=== PATIENT | female | born 1940 | race Caucasian/White ===

== ENCOUNTER 2020-11-03 10:05 | Inpatient (IN) | payer MEDICARE ==
[~2020-11-03] VITALS: Ht 165.1 cm; Wt 91.7 kg
[2020-11-03 10:54] LABS: BASOPHILS % 0.2 % (0.0-1.0); EOSINOPHILS % 0.1 % (0.0-6.0); HEMATOCRIT 40.4 % (34.2-44.1); MEAN CORPUSCULAR HEMOGLOBIN 30.2 pg (28-32); MEAN CORPUSCULAR HGB CONC 32.2 g/dL (31-35); MONOCYTES # (AUTO) 0.8 (0.2-0.8); MONOCYTES % 6.8 % (4.4-11.3); NEUTROPHILS # (AUTO) 9.5 (2.1-6.9); NEUTROPHILS % 83.3 % (38.7-80.0); PLATELET COUNT 278 x10e3/uL (140-360); RED CELL DISTRIBUTION WIDTH 13.5 % (11.7-14.4)
[2020-11-03 11:04] LABS: CLARITY,URINE SL CLOUDY (CLEAR); COLOR,URINE AMBER (YELLOW); KETONES,URINE TRACE (NEGATIVE); LEUKOCYTE ESTERASE ,URINE NEGATIVE (NEGATIVE); NITRITE,URINE NEGATIVE (NEGATIVE); PROTEIN,URINE DIPSTICK 1+ (NEGATIVE); URINE UROBILINOGEN 0.2 mg/dL (0.2 - 1)
[2020-11-03 11:09] LABS: PARTIAL THROMBOPLASTIN TIME 88.7 seconds (23.8-35.5)
[2020-11-03 11:10] LABS: INR 7.2; PROTHROMBIN TIME 62.3 seconds (11.9-14.5)
[2020-11-03 11:15] LABS: BACTERIA,URINE MODERATE /HPF; EPITHELIAL CELLS,URINE MODERATE /LPF
[2020-11-03 11:16] LABS: ALBUMIN 3.4 g/dL (3.5-5.0); ALBUMIN/GLOBULIN RATIO 1.1 (0.8-2.0); ANION GAP 17.3 mmol/L (8-16); CALCIUM 8.8 mg/dL (8.4-10.2); CREATININE, SERUM 1.22 mg/dL (0.57-1.11); MAGNESIUM 1.9 MG/DL (1.3-2.1); POTASSIUM 3.3 mmol/L (3.5-5.1)
[2020-11-03 11:23] LABS: CREATINE KINASE MB 1.6 ng/mL (0-5.0)
[2020-11-03] MEDS ORDERED: SODIUM CHLORIDE 0.9% 500ML 500 ML IV ONE (11:30)
[2020-11-03] MEDS ORDERED: MEROPENEM 1GM 100 ML IV ONE (11:30)
[2020-11-03 11:32] LABS: B-TYPE NATRIURETIC PEPTIDE2 376.8 pg/mL (0-100)
[2020-11-03] MEDS ORDERED: HYDRALAZINE HCL 20 MG/ML VIAL IV PRN (14:30)
[2020-11-03] MEDS ORDERED: POTASSIUM CHLORIDE 20 MEQ TAB CR PO NR (14:30)
[2020-11-03] MEDS ORDERED: ACETAMINOPHEN 325 MG TAB PO PRN (14:30)
[2020-11-03] MEDS ORDERED: DEXTROSE 50% SYRINGE 50 ML IV PRN (14:30)
[2020-11-03] MEDS ORDERED: DOCUSATE SODIUM 100 MG CAP PO PRN (14:30)
[2020-11-03] MEDS ORDERED: SIMETHICONE 80 MG CHEW PO PRN (14:30)
[2020-11-03] MEDS ORDERED: POTASSIUM CHLORIDE 20 MEQ TAB CR PO PRN (14:30)
[2020-11-03] MEDS ORDERED: LIDOCAINE 4% PATCH TP PRN (14:30)
[2020-11-03] MEDS ORDERED: ONDANSETRON HCL INJ 2MG/ML 2ML 2 MG/ML VIAL IV PRN (14:30)
[2020-11-03] MEDS ORDERED: DIPHENHYDRAMINE HCL 25 MG CAP PO PRN (14:30)
[2020-11-03] MEDS ORDERED: POLYETHYLENE GLYCOL 3350 17 GM PACK PO PRN (14:30)
[2020-11-03] MEDS: SODIUM CHLORIDE 0.9% 1000ML 1,000 ML IV SCH (15:18)
[2020-11-03] MEDS: CEFTRIAXONE 1 GM in SODIUM CHLORIDE 0.9% 50ML 50 ML IV SCH (15:18)
[2020-11-03 16:45] VITALS: BP 154/87
[2020-11-03] MEDS ORDERED: LISINOPRIL2.5 MG PO (16:58)
[2020-11-03] MEDS ORDERED: WARFARIN SODIUM5 MG PO (16:58)
[2020-11-03] MEDS ORDERED: FUROSEMIDE40 MG PO (16:58)
[2020-11-03] MEDS ORDERED: ATORVASTATIN CA20 MG PO (16:58)
[2020-11-03] MEDS ORDERED: METOPROLOL TAR100 MG PO (16:58)
[2020-11-03 18:35] LABS: CREATINE KINASE MB 1.8 ng/mL (0-5.0)
[2020-11-03 20:00] VITALS: BP 151/101
[2020-11-03 20:07] VITALS: BP 151/101
[2020-11-03] MEDS ORDERED: METOPROLOL TARTRATE 50 MG TAB PO STA (20:46)
[2020-11-03] MEDS ORDERED: CEFTRIAXONE 1 GM VIAL IV SCH (21:00)
[2020-11-03] MEDS ORDERED: SODIUM CHLORIDE 0.9% 250ML 250 ML ONE (23:16)
[2020-11-03 23:34] LABS: CREATINE KINASE MB 1.8 ng/mL (0-5.0)
[2020-11-04] VITALS (8 sets, daily range): BP systolic 115–154; BP diastolic 50–94
[2020-11-04] MEDS: MELATONIN 5 MG TABLET PO PRN ×2 (01:18→20:24)
[2020-11-04] MEDS: SODIUM CHLORIDE 0.9% 1000ML 1,000 ML IV SCH ×2 (03:50→17:17)
[2020-11-04 04:42] LABS: BASOPHILS % 0.3 % (0.0-1.0); EOSINOPHILS # (AUTO) 0.1 (0.0-0.4); EOSINOPHILS % 0.7 % (0.0-6.0); HEMATOCRIT 33.2 % (34.2-44.1); HEMOGLOBIN 10.7 g/dL (12.0-16.0); LYMPHOCYTES # (AUTO) 1.1 (1.0-3.2); LYMPHOCYTES % 14.3 % (18.0-39.1); MEAN CORPUSCULAR HEMOGLOBIN 30.4 pg (28-32); MEAN CORPUSCULAR HGB CONC 32.2 g/dL (31-35); MEAN CORPUSCULAR VOLUME 94.3 fL (81-99); MONOCYTES # (AUTO) 0.7 (0.2-0.8); MONOCYTES % 8.7 % (4.4-11.3); NEUTROPHILS # (AUTO) 5.7 (2.1-6.9); NEUTROPHILS % 75.6 % (38.7-80.0); PLATELET COUNT 236 x10e3/uL (140-360); RED BLOOD COUNT 3.52 x10e6/uL (3.6-5.1); RED CELL DISTRIBUTION WIDTH 13.4 % (11.7-14.4)
[2020-11-04 04:53] LABS: INR 2.97; PROTHROMBIN TIME 31.7 seconds (11.9-14.5)
[2020-11-04 05:06] LABS: ALBUMIN 2.8 g/dL (3.5-5.0); ALBUMIN/GLOBULIN RATIO 1.1 (0.8-2.0); CALCIUM 8.1 mg/dL (8.4-10.2); CHOL/HDL RATIO 3.6 (3.0-3.6); CREATININE, SERUM 0.92 mg/dL (0.57-1.11)
[2020-11-04 05:36] LABS: CREATINE KINASE MB 1.3 ng/mL (0-5.0)
[2020-11-04 05:54] LABS: PHOSPHORUS 3.1 MG/DL (2.3-4.7)
[2020-11-04 06:14] LABS: THYROID STIMULATING HORMONE 0.718 uIU/mL (0.350-4.940)
[2020-11-04] MEDS: PANTOPRAZOLE SOD 40 MG TABEC PO SCH (08:35)
[2020-11-04] MEDS ORDERED: METOPROLOL TARTRATE 50 MG TAB PO SCH (09:00)
[2020-11-04] MEDS: CEFTRIAXONE 1 GM in SODIUM CHLORIDE 0.9% 50ML 50 ML IV SCH (15:08)
[2020-11-04] MEDS: METOPROLOL TARTRATE 50 MG TAB PO SCH (17:17)
[2020-11-04] MEDS: ATORVASTATIN 20 MG TAB PO SCH (20:24)
[2020-11-05] VITALS (8 sets, daily range): BP systolic 124–155; BP diastolic 74–100
[2020-11-05 04:57] LABS: BASOPHILS % 0.4 % (0.0-1.0); EOSINOPHILS # (AUTO) 0.1 (0.0-0.4); EOSINOPHILS % 1.6 % (0.0-6.0); HEMATOCRIT 35.1 % (34.2-44.1); HEMOGLOBIN 11.1 g/dL (12.0-16.0); LYMPHOCYTES # (AUTO) 1.2 (1.0-3.2); LYMPHOCYTES % 17.5 % (18.0-39.1); MEAN CORPUSCULAR HEMOGLOBIN 29.9 pg (28-32); MEAN CORPUSCULAR HGB CONC 31.6 g/dL (31-35); MEAN CORPUSCULAR VOLUME 94.6 fL (81-99); MONOCYTES # (AUTO) 0.6 (0.2-0.8); MONOCYTES % 8.7 % (4.4-11.3); NEUTROPHILS # (AUTO) 4.8 (2.1-6.9); NEUTROPHILS % 71.4 % (38.7-80.0); PLATELET COUNT 256 x10e3/uL (140-360); RED BLOOD COUNT 3.71 x10e6/uL (3.6-5.1); RED CELL DISTRIBUTION WIDTH 13.2 % (11.7-14.4)
[2020-11-05 05:06] LABS: INR 3.38
[2020-11-05 05:10] LABS: ANION GAP 13.5 mmol/L (8-16); BLOOD UREA NITROGEN 20 mg/dL (7-26); BUN/CREATININE RATIO 23 (6-25); CALCIUM 8.4 mg/dL (8.4-10.2); CARBON DIOXIDE 23 mmol/L (22-29); CHLORIDE 108 mmol/L (98-107); CREATININE, SERUM 0.86 mg/dL (0.57-1.11); EST GLOMERULAR FILTRATION RATE > 60 ML/MIN (60-); GLUCOSE 85 mg/dL (74-118); POTASSIUM 3.5 mmol/L (3.5-5.1); SODIUM 141 mmol/L (136-145)
[2020-11-05] MEDS: SODIUM CHLORIDE 0.9% 1000ML 1,000 ML IV SCH ×2 (08:28→20:02)
[2020-11-05] MEDS: LISINOPRIL 2.5 MG TAB PO SCH (08:33)
[2020-11-05] MEDS: METOPROLOL TARTRATE 50 MG TAB PO SCH (08:33)
[2020-11-05] MEDS: PANTOPRAZOLE SOD 40 MG TABEC PO SCH (08:34)
[2020-11-05] MEDS: METOPROLOL SUCCINATE 50 MG TAB XL PO SCH (11:24)
[2020-11-05 12:43] LABS: INR 4.42
[2020-11-05 12:50] LABS: PROTHROMBIN TIME 42.9 seconds (11.9-14.5)
[2020-11-05] MEDS: CEFTRIAXONE 1 GM in SODIUM CHLORIDE 0.9% 50ML 50 ML IV SCH (14:46)
[2020-11-05] MEDS: QUETIAPINE FUMARATE 25 MG TAB PO PRN (18:30)
[2020-11-05] MEDS: ATORVASTATIN 20 MG TAB PO SCH (20:02)
[2020-11-05] MEDS: MELATONIN 5 MG TABLET PO PRN (20:03)
[2020-11-06] VITALS: BP 141/89
[2020-11-06 04:00] VITALS: BP 140/92
[2020-11-06 04:58] LABS: INR 3.73; PROTHROMBIN TIME 37.7 seconds (11.9-14.5)
[2020-11-06] MEDS: QUETIAPINE FUMARATE 25 MG TAB PO PRN (06:28)
[2020-11-06] MEDS: PANTOPRAZOLE SOD 40 MG TABEC PO SCH (07:57)
[2020-11-06 08:15] VITALS: BP 140/84
[2020-11-06 08:16] VITALS: BP 140/84
[2020-11-06] MEDS: LISINOPRIL 2.5 MG TAB PO SCH (08:27)
[2020-11-06] MEDS: METOPROLOL SUCCINATE 50 MG TAB XL PO SCH (08:28)
[2020-11-06] MEDS ORDERED: SODIUM CHLORIDE 0.9% 1000ML 1,000 ML ONE (11:48)
[2020-11-06 12:05] VITALS: BP 162/88
[2020-11-06] MEDS: CEFTRIAXONE 1 GM in SODIUM CHLORIDE 0.9% 50ML 50 ML IV SCH (15:02)
[2020-11-06 16:21] VITALS: BP 163/90
== END 2020-11-06 17:14 | DRG 291 ==
LOC: ER 10:20 → ERHOLD 11:18 → MED/SURG 16:27 → OBSVTOIN 11-04 12:58
PROVIDERS: ADMIT Internal Medicine; ATTEND Internal Medicine
PROC: 30233L1 Transfusion of Nonautologous Fresh Plasma into Peripheral Vein, Percutaneous Approach (ICD-10-PCS; principal; 2020-11-03)
PROC: 30233K1 Transfusion of Nonautologous Frozen Plasma into Peripheral Vein, Percutaneous Approach (ICD-10-PCS; 2020-11-03)
DX: I11.0 Hypertensive heart disease with heart failure (principal); J18.9 Pneumonia, unspecified organism; G93.40 Encephalopathy, unspecified; I48.91 Unspecified atrial fibrillation; I50.33 Acute on chronic diastolic (congestive) heart failure; M54.9 Dorsalgia, unspecified; I50.9 Heart failure, unspecified; F41.9 Anxiety disorder, unspecified; E78.5 Hyperlipidemia, unspecified; T45.515A Adverse effect of anticoagulants, initial encounter; G30.9 Alzheimer's disease, unspecified; F02.80 Dementia in other diseases classified elsewhere, unspecified severity, without behavioral disturbance, psychotic disturbance, mood disturbance, and anxiety; R55 Syncope and collapse; W06.XXXA Fall from bed, initial encounter; Y92.122 Bedroom in nursing home as the place of occurrence of the external cause; Z79.01 Long term (current) use of anticoagulants; K57.90 Diverticulosis of intestine, part unspecified, without perforation or abscess without bleeding; Z20.822 Contact with and (suspected) exposure to COVID-19
CPT/HCPCS: 36415; 51700; 70450; 71045; 72125; 72192; 80048; 80053; 80061; 81001; 82550; 82553; 83605; 83735; 83880; 84100; 84443; 84484; 85025; 85610; 85730; 86850; 86900; 87040; 87086; 93005; 93306; 93880; 97139; 99284; G0378; J0696; J7030; J7040; J7050; P9017; U0002